=== PATIENT | female | born 1965 | race Caucasian/White ===

== ENCOUNTER 2017-07-03 10:06 | Emergency (ER) | payer MEDICAID, OTHER ==
[~2017-07-03] VITALS: Ht 172.7 cm; Wt 71.0 kg
[2017-07-03 10:11] VITALS: BP 136/64; PULSE 71; RESP 16; TEMP 97.9; O2SAT 99
[2017-07-03] MEDS ORDERED: IBUP1TAB7 PO (11:07)
--- NOTE | 2017-07-03 11:07 | PD ---
HPI Chief Complaint: Musculoskeletal Complaint Time Seen by Provider: 10:51 Travel History International Travel<30 days: No Contact w/Intl Traveler<30days: No Traveled to known affect area: No History of Present Illness HPI 52-year-old female here with right shoulder pain 2 weeks. She denies injury. She reports pain with range of motion which is relieved with rest. Denies paresthesia or weakness of the extremity. Denies fever or chills. Symptom severity is moderate. PFSH Past Medical History Medical History: Denies Significant Hx Diminished Hearing: No Tetanus Vaccination: Unknown Influenza Vaccination: No ?: Not Past Surgical History Tonsillectomy: Yes Social History Alcohol Use: Yes Tobacco Use: Yes (1 PPD) Substance Use: No Allergies-Medications (Allergen,Severity, Reaction): Coded Allergies: No Known Allergies (Unverified , 07/03/17) Reported Meds & Prescriptions Reported Meds & Active Scripts Active Ibuprofen 800 Mg Tab 800 Mg PO Q6HR PRN Review of Systems Except as stated in HPI: all other systems reviewed are Neg General / Constitutional: No: Fever Physical Exam Narrative GENERAL: Alert female. Well-appearing. SKIN: Warm and dry. HEAD: Normocephalic. EYES: No scleral icterus. No injection or drainage. NECK: Supple, trachea midline. CARDIOVASCULAR: Regular rate and rhythm without murmurs, gallops, or rubs. RESPIRATORY: Breath sounds equal bilaterally. No accessory muscle use. GASTROINTESTINAL: Abdomen soft, non-tender, nondistended. MUSCULOSKELETAL: No cyanosis, or edema. Right upper extremity: Mild tenderness to the anterior posterior aspect of the shoulder. No deformity. No joint effusion. Patient has full range of motion of the shoulder with mild pain with forward extension and external rotation. 2+ distal pulses. Brisk cap refill. BACK: Nontender without obvious deformity. No CVA tenderness. Data Data Last Documented VS Vital Signs Date Time Temp Pulse Resp B/P (MAP) Pulse Ox O2 Delivery O2 Flow Rate FiO2 07/03/17 10:11 97.9 71 16 136/64 (88) 99 Orders Orders Splint Or Brace Apply/Monitor (07/03/17 11:07) Ed Discharge Order (07/03/17 11:08) MDM Medical Decision Making Medical Screen Exam Complete: Yes Emergency Medical Condition: Yes Differential Diagnosis Rotator cuff injury, arthritis, tendinitis Narrative Course 52-year-old female here with nontraumatic right shoulder pain. Patient is neurovascularly intact. This is consistent with tendinitis, arthritis of the shoulder. She'll be treated with NSAIDs and short-term immobilization. Diagnosis Primary Impression: Shoulder pain, right Qualified Codes: M25.511 - Pain in right shoulder Referrals: Orthopedist Departure Forms: Tests/Procedures, Work Release Special Instructions: Must wear sling for one week Additional Instructions: Dedication as prescribed. Sling as directed. Follow-up with orthopedic Scripts Ibuprofen (Ibuprofen) 800 Mg Tab 800 MG PO Q6HR Y for PAIN, #40 TAB 0 Refills Prov: Princess Schultz 07/03/17 Disposition: 01 DISCHARGE HOME Condition: Stable Princess Schultz Jul 03, 2017 11:07
== END 2017-07-03 11:24 | disposition home or self-care (01) ==
LOC: PHEFT 10:06
DX: M25.511 Pain in right shoulder (principal); F17.200 Nicotine dependence, unspecified, uncomplicated
CPT/HCPCS: 99283